=== PATIENT | female | born 1940 | race Caucasian/White ===

== ENCOUNTER 2016-09-02 06:31 | Day surgery (SDC) | payer MEDICARE, OTHER ==
--- NOTE | ~2016-09-02 | EGD ---
EGD REPORT [facility] [address] [place] [id number] NAME: ASHLEY SOTO : [birth year] STATUS : REG [facility]#: [id number] AGE: 76 ADM/REG DATE : 09/02/16 MR#: [id number] REPORT SERV DATE: 09/02/16 DICTATED BY: IDA CONTRERAS DATE: 09/02/16 REPORT STATUS : Draft [facility]ANS[facility]: [facility] DATE: 09/02/16 [facility] Patient Name: Ashley Soto Date of : 1940 Attending MD: IDA CONTRERAS MD Procedure Date No Time: 09/02/2016 Procedure: Colonoscopy Indications: High risk colon cancer surveillance: Personal history of colonic polyps; last exam 2010. Patient Profile: Informed consent was obtained from the patient by me prior to the procedure. Risks, benefits, and alternatives were discussed including the risk of bleeding, perforation, infection, reaction to medicine, missed lesion, and cardiopulmonary complications. Referring MD: LILLIE DORMAN MD Medicines: Monitored Anesthesia Care Complications: No immediate complications. Procedure: Pre-Anesthesia Assessment: - ASA Grade Assessment: II - A patient with mild systemic disease. After I obtained informed consent, the scope was passed under direct vision. Throughout the procedure, the patient's blood pressure, pulse, and oxygen saturations were monitored continuously. The PCF [id number] was introduced through the anus and advanced to the cecum, identified by appendiceal orifice and ileocecal valve. The colonoscope was slowly withdrawn with careful examination all mucosal surfaces including specific attention around flexures and tip deflection behind folds; retroflexion performed in rectum. The colonoscopy was performed without difficulty. The patient tolerated the procedure well. The quality of the bowel preparation was adequate. The ileocecal valve, appendiceal orifice and rectum were photographed. Findings: A sessile polyp was found in the ascending colon. The polyp was 5 mm in size. The polyp was removed with a cold biopsy forceps. Resection and retrieval were complete. A flat polyp was found in the sigmoid colon. The polyp was 5 mm in size. The polyp was removed with a cold biopsy forceps. Resection and retrieval were complete. Internal hemorrhoids were found during retroflexion and were mild. Impression: - One 5 mm polyp in the ascending colon. Resected and EGD REPORT [address] [address] NAME: ASHLEY SOTO : [birth year] STATUS : REG [facility]#: [id number] AGE: 76 ADM/REG DATE : 09/02/16 MR#: [id number] REPORT SERV DATE: 09/02/16 DICTATED BY: IDA CONTRERAS DATE: 09/02/16 REPORT STATUS : Draft TRANSCRIBED BY: [employer] DATE: 09/02/16 retrieved. - One 5 mm polyp in the sigmoid colon. Resected and retrieved. - Internal hemorrhoids. Recommendation: - Patient has a contact number available for emergencies. The signs and symptoms of potential delayed complications were discussed with the patient. Return to normal activities tomorrow. Written discharge instructions were provided to the patient. - Regular diet. - Continue present medications. - Await pathology results. - Repeat colonoscopy for surveillance based on pathology results. Procedure Code(s): --- Professional --- 80482, Colonoscopy, flexible, proximal to splenic flexure; with biopsy, single or multiple Diagnosis Code(s): --- Professional --- D12.5, Benign neoplasm of sigmoid colon D12.2, Benign neoplasm of ascending colon K64.8, Other hemorrhoids Z86.010, Personal history of colonic polyps CPT copyright 2013 [employer]. All rights reserved. The codes documented in this report are preliminary and upon clerical transcriber review may be revised to meet current compliance requirements. IDA CONTRERAS MD 09/02/2016 8:41 AM This report has been signed electronically. Number of Addenda: 0 Note Initiated On: 09/02/2016 8:12 AM Scope Withdrawal Time 0 hours 12 minutes 4 seconds [id number] [place] [id number]
[~2016-09-02 06:31] MED LIST: ALTA5 PO; B COMPLETE PO; COQ-1010 MG OR; DETROLLA4 PO; GLUCCHONDR PO; LAM250 PO; LEVOTHYROXIN88 MCG PO; MAGOX4 PO; MIRALAX POWDER1 PKT PO; OS500 PO; OS500+D PO; PRILO PO; PRILOSEC OTC20 MG PO; PROTONIX PO; STERAPRED DS10 MG PO; SUPER B COMP PO; VESICARE5 PO; VITC500 PO; ZYRTEC ALLGY10 MG PO
== END 2016-09-02 23:59 | disposition home health service (06) ==
LOC: DMU 06:31
PROVIDERS: Internal Medicine Gastroenterology
PROC: 0DBK8ZX Excision of Ascending Colon, Via Natural or Artificial Opening Endoscopic, Diagnostic (ICD-10-PCS; 2016-09-02)
PROC: 0DBN8ZX Excision of Sigmoid Colon, Via Natural or Artificial Opening Endoscopic, Diagnostic (ICD-10-PCS; principal; 2016-09-02 08:00)
DX: K63.5 Polyp of colon (principal); K64.8 Other hemorrhoids; E03.9 Hypothyroidism, unspecified; K21.9 Gastro-esophageal reflux disease without esophagitis; E66.9 Obesity, unspecified; M19.90 Unspecified osteoarthritis, unspecified site; Z86.010 Personal history of colon polyps; Z87.891 Personal history of nicotine dependence; Z90.710 Acquired absence of both cervix and uterus; Z98.890 Other specified postprocedural states
CPT/HCPCS: 88305